=== PATIENT | male | born 1965 | race Caucasian/White ===

== ENCOUNTER 2020-12-11 08:12 | Day surgery (SDC) | payer BC ==
[~2020-12-11] VITALS: Ht 175.3 cm; Wt 99.7 kg
[~2020-12-11 08:12] MED LIST: CALCA500CH; CALCIUM CIT 311 EAC7; CHOL10002; CYCL10; DAILY MULTIPLE1 EACH; ERGO50000; NAPR220; TOPROL XL200 MG; VITAMIN B12-FO1 EACH
--- NOTE | 2020-12-11 10:30 | NUR ---
12/11/20 1030 Frances Gautam PT. VERBALIZES HAVING A DRY THROAT, PT. DRINKING [place]W. PT. ALSO VERBALIZES HAVING A HEADACHE. PT. INSTRUCTED PROBABLY FROM NOT EATING.
== END 2020-12-11 10:23 | disposition home or self-care (01) ==
LOC: ORSCSDS 08:12
PROVIDERS: Internal Medicine Gastroenterology
PROC: 0DBH8ZX Excision of Cecum, Via Natural or Artificial Opening Endoscopic, Diagnostic (ICD-10-PCS; principal; 2020-12-11 09:30)
PROC: 0DBM8ZX Excision of Descending Colon, Via Natural or Artificial Opening Endoscopic, Diagnostic (ICD-10-PCS; principal; 2020-12-11 09:30)
PROC: 0DBN8ZX Excision of Sigmoid Colon, Via Natural or Artificial Opening Endoscopic, Diagnostic (ICD-10-PCS; principal; 2020-12-11 09:30)
PROC: 0DBP8ZX Excision of Rectum, Via Natural or Artificial Opening Endoscopic, Diagnostic (ICD-10-PCS; principal; 2020-12-11 09:30)
DX: Z12.11 Encounter for screening for malignant neoplasm of colon (principal); Z86.010 Personal history of colon polyps; D12.8 Benign neoplasm of rectum; D12.4 Benign neoplasm of descending colon; D12.5 Benign neoplasm of sigmoid colon; E66.9 Obesity, unspecified; Z68.32 Body mass index [BMI] 32.0-32.9, adult; Z79.899 Other long term (current) drug therapy
CPT/HCPCS: 88305; J2704; J7120

== ENCOUNTER → 2021-04-28 | Outpatient (CLI) | payer BC | END | disposition home or self-care (01) | LOC: PLD 14:03 → LAB SHORT 14:03 | DX: M79.671 Pain in right foot (principal); R22.41 Localized swelling, mass and lump, right lower limb; R26.2 Difficulty in walking, not elsewhere classified; D17.0 Benign lipomatous neoplasm of skin and subcutaneous tissue of head, face and neck | CPT/HCPCS: 88304 ==

== ENCOUNTER → 2022-10-19 | Outpatient (CLI) | payer BC | LOC: LAB SHORT 13:48 → LAB 13:48 | DX: R21 Rash and other nonspecific skin eruption (principal) | CPT/HCPCS: 87070; 87077; 87147; 87186 ==

== ENCOUNTER 2024-01-15 14:39 | Inpatient (IN) | payer BC ==
[~2024-01-15] VITALS: Ht 175.3 cm; Wt 100.1 kg
[2024-01-15 16:00] LABS: BASOPHILS ABSOLUTE AUTO 0.05 K/mm3 (0.00-0.23); BASOPHILS PERCENT AUTO 1 % (0-2); EOSINOPHILS PERCENT AUTO 1 % (0-6); Hematocrit 46.4 % (37.0-53.0); IMMATURE GRAN ABSOLUTE AUTO 0.05 K/mm3 (0.00-0.10); IMMATURE GRAN PERCENT AUTO 1 % (0-1); LYMPHOCYTES ABSOLUTE AUTO 2.88 K/mm3 (0.84-5.20); LYMPHOCYTES PERCENT AUTO 29 % (21-46); MONOCYTES ABSOLUTE AUTO 0.91 K/mm3 (0.16-1.47); MONOCYTES PERCENT AUTO 9 % (4-13); Mean Corpuscular HGB 29.3 pg (26.0-34.0); Mean Corpuscular HGB Conc 34.5 g/dL (31.5-36.5); Mean Corpuscular Volume 85 fL (80-100); Mean Platelet Volume 9.7 fL (9.1-12.4); NEUTROPHILS ABSOLUTE AUTO 6.06 K/mm3 (1.96-9.15); NEUTROPHILS PERCENT AUTO 60 % (41-73); Platelet Count 275 K/mm3 (150-400); RDW Coefficient Variation 12.4 % (11.7-14.2); RDW Standard Deviation 38.5 fL (35.1-46.3); Red Blood Cell Count 5.47 M/mm3 (4.30-5.90); White Blood Cell Count 10.05 K/mm3 (4.00-11.30)
[2024-01-15] MEDS ORDERED: ADALAT CC30 M1 PO (16:11)
[2024-01-15 16:17] LABS: Albumin, Blood 3.4 g/dL (3.4-5.0); Albumin/Globulin Ratio 0.8 (0.8-1.8); Bilirubin, Total 0.4 mg/dL (0.1-1.0); Bun/Creatinine Ratio 17.5 (12.0-20.0); Calcium, Blood 8.7 mg/dL (8.5-10.1); Creatinine, Blood 0.91 mg/dL (0.60-1.20); Potassium, Blood 3.4 mmol/L (3.5-5.5); Total Protein, Blood 7.4 g/dL (6.4-8.2)
[2024-01-15] MEDS ORDERED: Aspirin 81 MG Chew PO ONE (17:30)
[2024-01-15] MEDS ORDERED: Clopidogrel Bisulfate 75 MG Tab PO ONE (17:30)
[2024-01-15] MEDS ORDERED: NS 1,000 ML IV SCH (18:05)
[2024-01-15] MEDS ORDERED: FLU VACC TS2024-25(6MOS UP)/PF 45 MCG/0.5 ML SYRINGE IM SCH (18:10)
[2024-01-15] MEDS ORDERED: Ondansetron HCl 2 MG / ML 2ML Vial IV PRN (18:10)
[2024-01-15] MEDS ORDERED: Potassium Chl 20MEQ/Water100ML 100 ML IV SCH (18:15)
[2024-01-15] MEDS ORDERED: Enoxaparin 40 MG/0.4 ML SYR SC SCH (19:00)
[2024-01-15] MEDS ORDERED: Atorvastatin 40 MG Tab PO SCH (19:00)
[2024-01-15] MEDS ORDERED: NS 1,000 ML IV ONE (19:33)
[2024-01-15 21:12] VITALS: BP 161/111
[2024-01-16 04:04] VITALS: BP 170/111
--- NOTE | 2024-01-16 04:55 | NUR ---
ADMIT NOTE FOR 01/15/242114 REPORT WAS RECEIVED AT 2114 FROM THE ER. PT WAS BROUGHT DOWN ON A GURNEY AND WAS ABLE TO STAND AND TRANSFER TO THE BED. ON ARRIVAL HIS RT LEG WAS A LITTLE WEAK BUT MUCH IMPROVED SINCE ARRIVAL TO THE ER. HE HAS NO FACIAL DROOP OR SLURRED SPEECH. SPEECH WAS NORMAL. HE HAS EQUAL FIRE EATER AND NO DRIFT ON HIS RT ARM OR LEG. NEURO CHECKS WNL. HE WAS ORIENTED TO THE ROOM AND STAFF. HE WAS RECEIVING POTASSIUM IV AT THE TIME FOR A POTASSIUM LEVEL OF 3.4. HE WAS ABLE TO GET UP AND AMBULATE TO THE BATHROOM WITH NO PROBLEMS. HE REMAINS SLIGHTLY WEAK TO HIS RT LEG BUT MUCH IMPROVEMENT
--- NOTE | 2024-01-16 04:59 | NUR ---
SHIFT SUMMARY PT ARRIVED FROM THE ER LAST NIGHT AT 2114 FOR A DX OF ACUTE ISCHEMIC STROKE. PT ALERT ORIENTED CALLS APPROPRIATELY. REMAINS SLIGHTLY WEAK TO HIS RT LEG BUT HE STATED ITS MUCH IMPROVED SINCE ARRIVAL TO THE ER. NEURO CHECKS ARE WNL. HE HAS EQUAL NUTRITION SPECIALIST AND NO NUMBNESS OR TINGLING TO FACE OR ON BODY. ABLE TO HOLD BOTH LEGS AND ARMS UP WITH NO DRIFT. NO FACIAL DROOP OR SLURRED SPEECH. ABLE TO AMBULATE TO BATHROOM WITH NO PROBLEMS. HE HAD 2 BAGS OF POTASSIUM LAST NIGHT FOR A POTASSIUM LEVEL OF 3.4. HES DUE TO HAVE LABS DONE THIS AM. I DID A BEDSIDE SWALLOW EVAL AND HE WAS ABLE TO DRINK WATER AND EAT APPLESAUCE WITH NO DIFFICULTIES IN SWALLOWING. HES DUE TO HAVE A ECHO DONE THIS AM. REMAINS ON NS AT 75. BP REMAINS ELEVATED AT 170/111 AND 161/111. SLEEPING IN BED AT THIS TIME WITH CALL LIGHT IN REACH
[2024-01-16 06:23] LABS: BASOPHILS ABSOLUTE AUTO 0.04 K/mm3 (0.00-0.23); BASOPHILS PERCENT AUTO 0 % (0-2); EOSINOPHILS ABSOLUTE AUTO 0.18 K/mm3 (0.00-0.68); EOSINOPHILS PERCENT AUTO 2 % (0-6); Hematocrit 43.5 % (37.0-53.0); Hemoglobin 15.1 g/dL (13.5-17.5); IMMATURE GRAN ABSOLUTE AUTO 0.05 K/mm3 (0.00-0.10); IMMATURE GRAN PERCENT AUTO 1 % (0-1); LYMPHOCYTES ABSOLUTE AUTO 3.15 K/mm3 (0.84-5.20); LYMPHOCYTES PERCENT AUTO 34 % (21-46); MONOCYTES ABSOLUTE AUTO 0.91 K/mm3 (0.16-1.47); MONOCYTES PERCENT AUTO 10 % (4-13); Mean Corpuscular HGB 29.4 pg (26.0-34.0); Mean Corpuscular HGB Conc 34.7 g/dL (31.5-36.5); Mean Corpuscular Volume 85 fL (80-100); Mean Platelet Volume 9.8 fL (9.1-12.4); NEUTROPHILS ABSOLUTE AUTO 4.99 K/mm3 (1.96-9.15); NEUTROPHILS PERCENT AUTO 54 % (41-73); Platelet Count 249 K/mm3 (150-400); RDW Coefficient Variation 12.5 % (11.7-14.2); RDW Standard Deviation 38.5 fL (35.1-46.3); Red Blood Cell Count 5.14 M/mm3 (4.30-5.90); White Blood Cell Count 9.32 K/mm3 (4.00-11.30)
[2024-01-16 07:00] LABS: Albumin/Globulin Ratio 0.9 (0.8-1.8); Bilirubin, Total 0.4 mg/dL (0.1-1.0); Bun/Creatinine Ratio 16.8 (12.0-20.0); Calcium, Blood 8.9 mg/dL (8.5-10.1); Creatinine, Blood 0.72 mg/dL (0.60-1.20); Globulin, Blood 3.5 g/dL (2.2-4.0); Potassium, Blood 3.6 mmol/L (3.5-5.5); Total Protein, Blood 6.5 g/dL (6.4-8.2)
[2024-01-16 08:16] VITALS: BP 163/113
[2024-01-16 08:53] LABS: CHOL/HDL RATIO 5.3; Cholesterol 165 mg/dL (50-200); HDL Cholesterol 31 mg/dL (>39); LDL/HDL RATIO 2.9; Low Density Lipoprotein Chol 89 mg/dL (0-110); Triglycerides 223 mg/dL (30-160); Very Low Density Lipoprot Chol 44 mg/dL (6-32)
[2024-01-16] MEDS ORDERED: Clopidogrel Bisulfate 75 MG Tab PO SCH (09:00)
[2024-01-16] MEDS ORDERED: Aspirin 81 MG Chew PO SCH (09:00)
[2024-01-16] MEDS ORDERED: Metoprolol Tartrate 25 MG Tab PO SCH (09:00)
[2024-01-16 15:35] VITALS: BP 182/116
[2024-01-16] MEDS ORDERED: HydrALAZINE HCl 20 MG / ML 1ML Vial IV PRN (17:15)
[2024-01-16] MEDS ORDERED: TraZODone HCl 50 MG Tab PO PRN (17:50)
--- NOTE | 2024-01-16 18:40 | NUR ---
PT HAS BEEN RESTING WELL IN BED, HE DID HAVE SOME ANXEITY TOWARDS THE END OF THE EVENING RELATED TO HIS STAY DR MORIN CAME TO ROOM AND PT WAS REDIRECTED. HTN HAS INCREASED AT THE END OF THIS SHIFT WHICH WAS TREATED WITH APRESOLINE IVP. PT OTHERWISE HAS BEEN PAIN FREE, NO SOB REPORTED, SLIGHT WEAKNESS REMAINS TO RIGHT ARM AND LEG
[2024-01-16 19:00] VITALS: BP 174/114
[2024-01-16] MEDS ORDERED: Metoprolol Tartrate 50 MG Tab PO SCH (21:00)
[2024-01-16] MEDS ORDERED: Melatonin 5 MG Tablet PO SCH (21:00)
[2024-01-17 02:43] VITALS: BP 154/115
--- NOTE | 2024-01-17 04:25 | NUR ---
SHIFT SUMMARY PT ALERT ORIENTED X 4 REMAINS WITH RT ARM AND RT LEG WEAKNESS AND A SLIGHT RIGHT SIDED FACIAL DROOP. HE IS ABLE TO AMBULATE TO THE BATHROOM WITH NO PROBLEMS. HIS ECHO YESTERDAY WAS 65-70%. 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 HE REMAINS ON BLOOD THINNERS. BP REMAINS ELEVATED WHICH IS PERMISSIVE. HIS BP WAS 174/114 AND 154/115. HIS PARAMETERS FOR THE HYDRALAZINE IS A SBP OF OVER 185. REMAINS ON TELEMETRY ST AT 102 WITH A BBB. HE DID C/O NOT BEING ABLE TO SLEEP EVEN AFTER HAVING THE MELATONIN SO TRAZADONE WAS GIVEN WITH GOOD RESULTS. HE HAS BEEN C/O A HEADACHE WHICH HE STATED ISNT NEW AND HES HAD THOSE AFTER HE STOPPED DRINKING ALOT OF RED BULLS.HES SLEEPING AT THIS TIME WITH CALL LIGHT IN REACH.
[2024-01-17 07:52] VITALS: BP 153/104
[2024-01-17] MEDS ORDERED: Acetaminophen 325 MG TABLET PO PRN (08:30)
[2024-01-17] MEDS ORDERED: NIFEdipine 30 MG TabCR PO SCH (10:00)
[2024-01-17 16:03] VITALS: BP 122/80
[2024-01-17 16:14] VITALS: BP 125/79
--- NOTE | 2024-01-17 18:15 | NUR ---
PT ALERT AND ORIENTED, REPORTED WORSENING RIGHT SIDED WEAKNESS AND FACIAL DROOP AND HEADACHE, MD NOTIFIED. REPEAT CT SHOWED EXPECTED EVOLUTION OF CVA. PT HAD SPEECH EVAL AND DID WELL, PT AND OT RECCOMEND 3+ HOURS OF REHABILITATION/DAY. PT WOULD LIKE TO GO HOME, BUT IS COOPERATIVE WITH CARE. NO FURTHER WORSENING OF SYMPTOMS THROUGHOUT THE SHIFT, HTN CONTROLLED WITH NIFEDIPINE, HEAD ACHE TREATED WITH PRN TYLENOL. FAMILY AT BEDSIDE, CALL LIGHT IN REACH.
[2024-01-17 19:37] VITALS: BP 137/96
--- NOTE | 2024-01-18 01:37 | NUR ---
01/17/242029 PT SITTING ON EDGE OF BED, VISITOR IN ROOM. REPORTS A HEADACHE OF 3/10, FACE LOOKS LIKE A 5/10. GOT TYLENOL AT 1748. WILL CONTINUE TO MONITOR FOR EFFECT. REPORTS SLIGHT NAUSEA BUT DOES NOT FEEL LIKE HE NEEDS MEDS FOR IT YET. TELE SB AT 60, BBB. PT'S RUE AND RLE FLACCID TO VERY WEAK, R FACIAL DROOP. NO OTHER APPARENT SIGNS OF DISTRESS. CALL LIGHT IS IN REACH.
--- NOTE | 2024-01-18 01:39 | NUR ---
01/17/242038 PT'S VISITOR LET ME KNOW THAT THE PATIENT IS VOMITING. GAVE ZOFRAN. WILL EVAL FOR EFFECT. PT THINKS THE HEADACHE IS FROM NO CAFFIENE AND THE VOMITING IS FROM THE HEADACHE. ASKED THE PATIENT IF HE WOULD LIKE SOMETHING WITH CAFFIENE IN IT, PT DECLINED AND WANTS TO CONTINUE WITH NO CAFFIENE FOR NOW. WILL CONTINUE TO MONITOR. NO OTHER APPARENT SIGNS OF DISTRESS. CALL LIGHT IS IN REACH.
--- NOTE | 2024-01-18 01:42 | NUR ---
01/17/24 2200 PT AWAKE, SITTING ON EDGE OF BED. DENIES NEED FOR ANYTHING. NO APPARENT SIGNS OF DISTRESS. CALL LIGHT IS IN REACH.
--- NOTE | 2024-01-18 01:42 | NUR ---
0000 PT LYING IN BED, EYES CLOSED, WAKES EASILY TO VERBAL STIMULI. NO APPARENT SIGNS OF DISTRESS. DENIES NEED FOR ANYTHING. CALL LIGHT IS IN REACH.
--- NOTE | 2024-01-18 02:03 | NUR ---
PT LYING IN BED, EYES CLOSED, BREATHING IS EVEN, UNLABORED. NO APPARENT SIGNS OF DISTRESS. CALL LIGHT IS IN REACH.
[2024-01-18 03:25] VITALS: BP 178/116
--- NOTE | 2024-01-18 03:39 | NUR ---
PT REQUESTED AND RECEIVED ZOFRAN AND TYLENOL, WILL EVAL FOR EFFECT. NO OTHER APPARENT SIGNS OF DISTRESS. CALL LIGHT IS IN REACH.
--- NOTE | 2024-01-18 03:40 | NUR ---
PT IS AAO X 4, ON RA. RUE AND RLE ARE FLACCID TO VERY WEAK, R FACIAL DROOP. TELE SB IN 60'S. REPORTS HEADACHE, NAUSEA/VOMITING, GOT TYLENOL AND ZOFRAN.
--- NOTE | 2024-01-18 06:05 | NUR ---
PT LYING IN BED, EYES CLOSED, APPEARS TO BE RESTING. BREATHING IS EVEN, UNLABORED. NO APPARENT SIGNS OF DISTRESS. CALL LIGHT IS IN REACH. NO OTHER CHANGES THIS SHIFT.
[2024-01-18 07:53] VITALS: BP 140/97
--- NOTE | 2024-01-18 13:30 | NUR ---
PATIENT IS A&OX4. PATIENT CALLS APPROPRIATELY AND IS ABLE TO MAKE HIS NEEDS KNOWN. PT IN TODAY AND RECOMMENDS SBA D/T RIGHT SIDED WEAKNESS AND FALL RISK. PATIENT TALKED WITH DOCTOR FATOU THIS MORNING AND PATIENT REPORTS THAT HE HAS ALREADY CALLED A REHAB CENTER IN [place] AND THAT THEY HAVE AVALIABILITY-DR. LAINEZ TO TALK WITH CASE MANAGEMENT. PATIENTS SIGNIFICANT OTHER IN TODAY-PATIENT PLANS TO TAKE A SHOWER AFTER LUNCH. PATIENT IS UP SITTING IN CHAIR IN ROOM. PATIENT EXERCISING INDEPENDENTLY IN ROOM THIS AM AND WORKING WITH PT. PATIENT IS ABLE TO LIFT BILATERAL ARMS ABOVE HEAD THIS MORNING. CALL LIGHT IS IN REACH. THIS RN TO GIVE REPORT TO MELECIO Toro RN.
--- NOTE | 2024-01-18 14:02 | NUR ---
THIS RN ASSUMED CARE OF PT. REPORT RECIEVED FROM ZHANG JEFFERS. INTRODUCED SELF TO PT, NO NEEDS OR CONCERNS AT THIS TIME. CALL LIGHT IN REACH
--- NOTE | 2024-01-18 16:46 | NUR ---
SHIFT SUMMARY ASSUMED CARE OF PATIENT AT 1400. PATIENT ALERT AND INTERACTIVE. PATIENT HAS R SIDED WEAKNESS BUT ABLE TO AMBULATE WITH ASSISTANCE AND WALKER. R HAND FLACID. AT BEDSIDE. PATIENT TO TRANSFER TO INPATIENT REHAB ONCE INSURANCE APPROVAL DONE. EDUCATION PROVIDED RELATED TO STROKE AND THE IMPORTANCE OF EXERCISING AFFECTED SIDE. EDUCATION PROVIDED RELATED TO DIET BLOOD PRESSURE CONTROL AND EXERCISE.
[2024-01-18 16:57] VITALS: BP 131/87
[2024-01-18 19:18] VITALS: BP 147/90
[2024-01-19 03:25] VITALS: BP 110/86
--- NOTE | 2024-01-19 05:28 | NUR ---
pT SLEPT IN CHAIR THROUGH NIGHT, HERE FOR CVA, HAS RIGHT SIDED DEFICIT, A&O X4, VOIDS WITH URGENCY HE STATES. DID NOT SLEEP WELL. vs WNL, TELE SB IN 50'S. EXPIERENCING HEADACHES, MEDICATED WITH TYLENOL. SLEEP AIDES USED.
[2024-01-19 08:12] VITALS: BP 159/114
[2024-01-19 15:36] VITALS: BP 143/100
--- NOTE | 2024-01-19 18:44 | NUR ---
PT ALERT AND ORIENTED, RIGHT SIDE REMAINS FLACID TO WEAK. NO ACUTE CHANGES THIS SHIFT. PT WORKED WITH PT AND OT. CASE MANAGEMENT CONTINUED TO WORK ON IRU PLACEMENT. PT AWAITING PLACEMENT. PT SBA WITH QUAD WALKER, UP IN CHAIR, CALL LIGHT IN REACH.
[2024-01-19 20:07] VITALS: BP 137/91
[2024-01-20 04:08] VITALS: BP 147/104
--- NOTE | 2024-01-20 05:07 | NUR ---
PT SLEPT WELL THROUGH NIGHT, VS WNL, VOIDING, TELE NSR IN 70'S, NO ISSUE THIS SHIFT, CONTINUES TO WORK ON ADL'S AND PHYSICAL ACTIVITY.
[2024-01-20 08:38] VITALS: BP 157/111
[2024-01-20] MEDS ORDERED: NIFEdipine 30 MG TabCR PO SCH (09:00)
[2024-01-20 09:29] VITALS: BP 140/96
[2024-01-20 16:09] VITALS: BP 134/97
--- NOTE | 2024-01-20 17:12 | NUR ---
SHIFT SUMMARY: PATIENT HAS HAD NO NEW ACUTE CHANGES THIS SHIFT. PATIENT A/OX4, PLEASANT AND COOPERATIVE c CARE. PATIENT DENIES CP/PRESSURE, SOB, N/V AND DIZZINESS. PATIENT ON TELE, SR HR IN THE HIGH 80'S BPM. PATIENT ABLE TO MOVED HIS R HAND/R LEG BUT STILL VERY WEAK. PATIENT AMBULATES IN HALLWAY X1 c HEMIWALKER. PATIENT HAS MOD APPETITE, CONTINENT OF BOWEL/BLADDER, AMBULATES TO BATHROOM c SBA/HEMIWALKER. PATIENT HAD SHOWER/LINEN CHANGED. PATIENT RECEIVED SCHEDULED MEDS PER EMAR. VITAL SIGNS REVIEWED. PATIENT GOT ACCEPTED TO SNF IN [place], AWAITING FOR INSURANCE AUTH. CALL LIGHT IN REACH. PATIENT FAMILY IN ROOM VISITING THIS TIME.
[2024-01-20 19:23] VITALS: BP 142/104
[2024-01-21 05:51] VITALS: BP 133/93
--- NOTE | 2024-01-21 06:10 | NUR ---
SHIFT SUMMARY PT A&Ox4 AND PLEASANT. NO ACUTE CHANGES. PT USES LISBET WALKER IND. DIASTOLIC BP REAMAINS ELEVATED. NO C/O PAIN. PT PREFERES TO SLEEP IN RECLINER AT NIGHT. NO EVENTS ON TELE. CALL LIGHT IN REACH.
[2024-01-21 07:28] VITALS: BP 140/91
[2024-01-21 15:55] VITALS: BP 124/87
--- NOTE | 2024-01-21 16:14 | NUR ---
SHIFT SUMMARY PT A&OX4. PT ADMITTED DUE TO ACUTE ISCHEMIC STROKE WITH R SIDE DEFICITS. PT REPORTS NO PAIN. PT HAS SOME WEAKNESS IN R ARM AND R LEG. PT REPORTS IMPROVEMENT IN R HAND WHEN ASKED TO SQUEEZE. PT HAS BEEN SITTING IN CHAIR FOR MOST OF DAY. PT WORKED WITH PT AND OT. PT USES HEMIWALKER TO ASSIST WITH AMBULATION. PT WALKED JENKINS DURING SHIFT WITH SBA. VSS. PT EATS ADEQUATE AND VOIDS ADEQUATE. PT IS HIGHLY MOTIVATED TO START IRU PLACEMENT. INSURANCE AUTH PENDING FOR [facility]. PT ABLE TO MAKE NEEDS KNOWN AND COOROPERATIVE WITH CARE. CALL LIGHT IN REACH. AT BEDSIDE.
[2024-01-21 19:53] VITALS: BP 147/100
[2024-01-22 03:23] VITALS: BP 135/97
--- NOTE | 2024-01-22 05:58 | NUR ---
SHIFT SUMMARY PT ALERT AND ORIENTED TIMES 4. PT SLEPT THROUGH THE NIGHT. PT IS POLITE AND RECEPTIVE TO CARE. PT HAS NO IV ACCESS ORDER, CONTINENT AND AB LE TO AMBULATE AROUND ROOM. PT WORKING WITH PT OT. BED IN LOW POSITION, CALL LIGHT WITHIN REACH, RAILS TIMES 2.
[2024-01-22 07:41] VITALS: BP 158/106
[2024-01-22] MEDS ORDERED: Metoprolol Succinate 25 MG TABCR PO SCH (09:00)
[2024-01-22] MEDS ORDERED: Lisinopril 10 MG Tab PO SCH (09:00)
[2024-01-22 14:32] VITALS: BP 113/81
--- NOTE | 2024-01-22 17:29 | NUR ---
SHIFT SUMMARY: PATIENT HAS HAD NO NEW ACUTE EVENTS THIS SHIFT. PATIENT REPORTS IMPROVEMENT TO HIS RU/RLE'S. PATIENT PARTICIPATED c PT MOBILITY AMBULATING IN HALLWAY TODAY. PATIENT HAS GOOD APPETITE, CONTINENT OF BLADDER, AMBULATES TO BATHROOM T/O SHIFT. PATIENT SHOWERED c SPOUSE PARA MACHINE OPERATOR. PATIENT MEDICATED FOR SMITH X2, RECEIVED SCHEDULED MEDS PER EMAR. VITAL SIGNS REVIEWED. CALL LIGHT IN REACH. PATIENT HAS LOTS OF VISITOR ON/OFF T/O SHIFT.
[2024-01-22 19:21] VITALS: BP 118/71
[2024-01-23 02:05] VITALS: BP 113/85
--- NOTE | 2024-01-23 06:41 | NUR ---
SHIFT SUMMARY PT ALERT AND ORIENTED TIMES 4. PT HAD VISITORS IN THE EVENING. PT SLEPT THROUGH THE NIGHT. PT IS POLITE AND RECEPTIVE TO CARE. PT HAS NO IV ACCESS ORDER, CONTINENT AND AB LE TO AMBULATE AROUND ROOM. PT WORKING WITH PT OT. BED IN LOW POSITION, CALL LIGHT WITHIN REACH, RAILS TIMES 2.
[2024-01-23 08:49] VITALS: BP 132/92
[2024-01-23 16:59] VITALS: BP 104/74
--- NOTE | 2024-01-23 17:04 | NUR ---
SHIFT SUMMARY PT IS A/OX4 WITH SBA DUE TO WEAKNESS. NO ACUTE CHANGES THROUGHOUT THIS SHIFT. PT REPORTS INCREASED MOBILITY TO THE RUE AND RLE. PT ABLE TO PREFORM ABDUCTION OF THE RUE THIS MORNING. PT RECIEVED MANY VISITORS THROUGHOUT THE DAY. ABLE TO TOLERATE AMBULATING DOWN THE JENKINS WITH HEMIWALKER.
[2024-01-23 21:11] VITALS: BP 136/98
[2024-01-24 03:03] VITALS: BP 135/93
--- NOTE | 2024-01-24 03:53 | NUR ---
A&Ox4, vss, denied pain, indep in room, slept in recliner t/o shift, sleeping at this time w/call light in reach, will cont to monitor until report given to oncoming nurse.
[2024-01-24 07:57] VITALS: BP 128/97
--- NOTE | 2024-01-24 08:23 | NUR ---
pt sitting up in chair watching tv, a/ox4, pleasant and cooperative with care, follows commands well, denies pain, states he feels improvement, lungs are clear t/o, on r/a, no cough noted, hrr, no edema noted, ppp+1, cap refill< 3sec, vs stable, afebrile, btx4, abd flat soft nontender, voids without diff, skin c/w/d, right analytics analyst and dfpe weaker but can move, swallows without diff, call light in reach.
[2024-01-24] MEDS ORDERED: Lisinopril 20 MG Tab PO SCH (09:00)
[2024-01-24] MEDS ORDERED: ASPI81CH PO (11:49)
[2024-01-24] MEDS ORDERED: ATOR40TA PO (11:50)
[2024-01-24] MEDS ORDERED: CLOP75 PO (11:50)
[2024-01-24] MEDS ORDERED: METO25ER PO (11:51)
[2024-01-24] MEDS ORDERED: MELATONIN5 M1 PO (11:51)
[2024-01-24] MEDS ORDERED: LISI20 PO (11:51)
[2024-01-24] MEDS ORDERED: TRAZ50 PO (11:52)
--- NOTE | 2024-01-24 12:41 | NUR ---
Pt will be going to rehab today, report was called to becka Canseco up in room with his walker, ot worked with him a bit ago. call light in reach.
--- NOTE | 2024-01-24 13:29 | NUR ---
pt left for rehab with family, gave him a copy of his medications, called report, left via wheelchair with family in attendence with all his belongings.
== END 2024-01-24 13:21 | DRG 65 ==
LOC: ER 14:39 → MEDS 18:03 → ERHOLD 18:03 → MEDS 21:07
PROVIDERS: Internal Medicine; Student in an Organized Health Care Education/Training Program; ADMIT Internal Medicine
DX: I63.89 Other cerebral infarction (principal); G81.91 Hemiplegia, unspecified affecting right dominant side; I63.9 Cerebral infarction, unspecified; R29.810 Facial weakness; R29.703 NIHSS score 3; I10 Essential (primary) hypertension; E88.810 Metabolic syndrome; E87.6 Hypokalemia; G47.00 Insomnia, unspecified; E11.9 Type 2 diabetes mellitus without complications; Z98.84 Bariatric surgery status; Z88.6 Allergy status to analgesic agent; Z91.040 Latex allergy status
CPT/HCPCS: 36415; 70450; 70496; 70498; 70551; 80053; 80061; 83036; 83880; 84484; 85025; 92610; 93005; 93010; 93306; 97110; 97112; 97116; 97161; 97166; 97530; 97535; 99285-25; A9270; J0360; J1650; J2405; J3480; J7030; Q9967

== ENCOUNTER 2025-01-16 08:39 | Day surgery (SDC) | payer BC ==
[2025-01-16] VITALS (13 sets, daily range): BP systolic 104–139; BP diastolic 73–101
[~2025-01-16] VITALS: Ht 175.3 cm; Wt 90.1 kg
[~2025-01-16 08:39] MED LIST changes: +ADALAT CC30 M1 PO; +ASPI81CH PO; +ATOR10 PO; +BACL10 PO; +CLOP75 PO; +LISI20 PO; +MELATONIN5 M1 PO; +METO25ER PO; +TRAZ50 PO
[2025-01-16] MEDS ORDERED: CeFAZolin Sodium 2,000 MG in NS 100 ML IV SCH ×2 (08:40→18:50)
[2025-01-16] MEDS ORDERED: Tranexamic Acid 100 ML IV SCH (08:40)
[2025-01-16] MEDS ORDERED: Chlorhexidine Mouth Care 15 ML UDC MT SCH (08:40)
[2025-01-16] MEDS ORDERED: Ropivacaine 0.5% HCl/Pf 123.125 MG,EPINEPHrine HCL 0.25 MG,Ketorolac Tromethamine 15 MG... INFIL SCH (09:15)
--- NOTE | 2025-01-16 10:28 | NUR ---
Ambulatory in Day Surgery, accompanied by his . History, Chart, Medications and Allergies reviewed before start of procedure. Patient confirms NPO status and agrees with scheduled surgery. Pre-Op teaching done. Pt verbalizes understanding. Patient States Post-Procedure ride home has been arranged. Pt belongings placed underneath gurney for safekeeping. Pt glasses and hearing aids x2 taken to PACU for safekeeping.
[2025-01-16] MEDS ORDERED: Midazolam HCl 1MG / ML 2ML Vial ONE (10:31)
[2025-01-16] MEDS ORDERED: Metoclopramide HCl 5MG / ML 2ML Vial ONE (10:49)
[2025-01-16] MEDS ORDERED: Ondansetron HCl 2 MG / ML 2ML Vial ONE (10:49)
[2025-01-16] MEDS ORDERED: HYDROmorphone HCl/Pf 1MG SYR IV PRN ×2 (10:50→11:40)
[2025-01-16] MEDS ORDERED: Magnesium Hydroxide Conc 10 ML UDC PO PRN (10:50)
[2025-01-16] MEDS ORDERED: FLU VACC TS2025-26(6MOS UP)/PF 45 MCG/0.5 ML SYRINGE IM SCH (10:50)
[2025-01-16] MEDS ORDERED: Metoclopramide HCl 5MG / ML 2ML Vial IV PRN ×2 (10:55→11:40)
[2025-01-16] MEDS ORDERED: Ondansetron HCl 2 MG / ML 2ML Vial IV PRN ×2 (11:00→11:40)
[2025-01-16] MEDS ORDERED: Magnesium Sulfate 500 MG / ML 2ML Vial ONE (11:17)
[2025-01-16] MEDS ORDERED: ePHEDrine Sulfate 50 MG/ML 1ML Injection IV PRN (11:35)
[2025-01-16] MEDS ORDERED: Morphine Sulfate 4 MG/1 ML Injection IV PRN (11:40)
[2025-01-16] MEDS ORDERED: FentaNYL Citrate 50 MCG/ML 2 ML Injection IV PRN ×2 (11:40)
[2025-01-16] MEDS ORDERED: HYDROmorphone HCl/Pf 1MG SYR ONE (12:58)
--- NOTE | 2025-01-16 13:44 | NUR ---
ARRIVAL TO SURG FLOOR TO FLOOR VIA GURNEY. S/P L TKA. A&O x4, VSS. ABLE TO WIGGLE TOES & MOVE LEGS, BUT STATES SOME RESIDUAL NUMBNESS FROM SPINAL. STATES MINIMAL DISCOMFORT AT THIS TIME. AWAITING POST OP VOID. RESTING IN BED w/CALL LIGHT WITHIN REACH. SNACKS & DRINKS GIVEN.
--- NOTE | 2025-01-16 18:54 | NUR ---
SHIFT SUMMARY S/P L TKA. A&O x4, VSS. WORKED w/THERAPY - AMBULATED IN HALLWAY & ROOM. TOLERATING FOOD & FLUIDS WELL. STATES NO PAIN. EXPRESSES DESIRE TO DC HOME, DC INSTRUCTIONS REVIEWED. UNABLE TO VOID POST OP - PLANS TO ATTEMPT TO VOID, THEN DC IF SUCCESSFUL.
--- NOTE | 2025-01-16 22:25 | NUR ---
DISCHARGE SUMMARY PT D/C TODAY AT 2125 VIA WC TO PRIVATE AUTO WITH SPOUSE AND THIS RN. PT REPORTS PAIN DANILO. IS ABLE TO AMB IN HALLWAYS SEVERAL TIMES AND IN ROOM WITH FWW, GB, AND MIN ASSIST. DANILO PO, DENIES N/V. IV CATH REMOVED. DRESSING TO LEFT KNEE CDI, BRISK CAP REFILL. POLAR PACK, PERSONAL BELONGINGS AND DC INSTRUCTIONS SENT WITH PATIENT. PT EAGER FOR DISCHARGE AND DENIED CONCERNS.
== END 2025-01-16 21:26 | disposition home or self-care (01) ==
LOC: ORSCMMR 08:39 → ORD 10:00 → SURS 12:56 → ORSCMMR 21:26
PROVIDERS: Orthopaedic Surgery
PROC: 0SRD0JA Replacement of Left Knee Joint with Synthetic Substitute, Uncemented, Open Approach (ICD-10-PCS; principal; 2025-01-16 10:00)
DX: M17.12 Unilateral primary osteoarthritis, left knee (principal); Z86.73 Personal history of transient ischemic attack (TIA), and cerebral infarction without residual deficits; I10 Essential (primary) hypertension; E78.5 Hyperlipidemia, unspecified; Z79.899 Other long term (current) drug therapy; Z79.82 Long term (current) use of aspirin
CPT/HCPCS: 73560-LT; 97110; 97116; 97162; 97530; A9270; C1713; C1776; J0166; J0690; J0735; J1171; J1885; J2250; J2405; J2704; J2765; J2795; J3475; J7120